=== PATIENT | male | born 1980 | race Caucasian/White ===

== ENCOUNTER 2018-06-17 20:00 | Emergency (ER) | payer SELFPAY ==
[~2018-06-17] VITALS: Ht 182.9 cm; Wt 81.8 kg
[~2018-06-17 20:00] MED LIST: NOCURR
[2018-06-17] MEDS ORDERED: SODIUM CHLORIDE 0.9% 1,000 ML IV ONE (21:00)
[2018-06-17] MEDS ORDERED: KETOROLAC TROMETHAMINE 30 MG/ML VIAL IVP ONE (21:00)
[2018-06-17] MEDS ORDERED: CeFAZolin 1 GM/DEXTROSE 50 ML IV ONE (21:00)
[2018-06-17] MEDS ORDERED: ACETAMINOPHEN 325 MG TABLET PO ONE (21:00)
[2018-06-17 21:01] LABS: BASOPHILS % (AUTO) 0.5 % (0.0-2.0); EOSINOPHILS % (AUTO) 0.3 % (1.0-6.0); HEMATOCRIT 41.4 % (41-53); HEMOGLOBIN 13.9 g/dL (13.5-17.5); LYMPHOCYTES # (AUTO) 1.4 K/uL (1.0-4.8); LYMPHOCYTES % (AUTO) 12.1 % (22.0-44.0); MEAN CORPUSCULAR HGB CONC 33.6 G/dL (31.0-37.0); MEAN CORPUSCULAR VOLUME 89 fL (80-100); MONOCYTES # (AUTO) 1.1 K/uL (0.1-1.0); MONOCYTES % (AUTO) 9.7 % (2.0-9.0); NEUTROPHILS # (AUTO) 9.1 K/uL (1.8-7.7); NEUTROPHILS % (AUTO) 77.4 % (40.0-70.0); PLATELET COUNT (AUTO) 172 K/uL (150-450); RED BLOOD CELL COUNT(AUTO) 4.64 MIL/uL (4.50-5.90); RED CELL DISTRIBUTION WIDTH 13.9 % (11.5-14.5)
[2018-06-17 21:10] LABS: ANION GAP 7 mmol/L (8-16); CALCIUM, TOTAL 8.9 mg/dL (8.8-10.5); CARBON DIOXIDE 29 mmol/L (22-29); CHLORIDE 100 mmol/L (98-107); CREATININE 1.11 mg/dL (0.60-1.30); GLOMERULAR FILTR. RATE CALC > 60 mL/min (>60); GLUCOSE,RANDOM 100 mg/dL (70-110); POTASSIUM 3.9 mmol/L (3.5-5.1); SODIUM SERUM 136 mmol/L (136-145); UREA NITROGEN, BLOOD 18 mg/dL (7-18)
[2018-06-17 21:16] LABS: ALANINE AMINOTRANSFERASE 26 U/L (12-78); ALBUMIN 3.7 g/dL (3.4-5.0); ALKALINE PHOSPHATASE 122 U/L (46-116); ASPARTATE AMINOTRANSFERASE 16 U/L (15-37); BILIRUBIN,TOTAL 0.5 mg/dL (0.1-1.0); TOTAL PROTEIN, SERUM 8.9 g/dL (6.4-8.2)
[2018-06-17 22:13] VITALS: BP 127/84
== END 2018-06-17 22:15 | disposition home or self-care (01) ==
LOC: EMS 20:00
DX: L03.116 Cellulitis of left lower limb (principal)
CPT/HCPCS: 36415; 80053; 85025; 96365; 96375; 99283; J0690; J1885; J7030

== ENCOUNTER 2018-06-22 17:57 | Emergency (ER) | payer SELFPAY ==
[~2018-06-22] VITALS: Ht 182.9 cm; Wt 84.1 kg
[2018-06-22] MEDS ORDERED: septra PO (18:15)
[2018-06-22] MEDS ORDERED: CEPH500 PO (18:15)
[2018-06-22 20:14] VITALS: BP 115/75
[2018-06-22] MEDS ORDERED: HYDROCODONE/ACETAMINOPHEN 5-325 MG TABLET PO ONE (21:45)
== END 2018-06-22 21:52 | disposition home or self-care (01) ==
LOC: EMS 17:58
DX: L03.116 Cellulitis of left lower limb (principal); B35.3 Tinea pedis; L02.612 Cutaneous abscess of left foot; Z90.49 Acquired absence of other specified parts of digestive tract; Z79.899 Other long term (current) drug therapy
CPT/HCPCS: 10060; 87070; 87205

== ENCOUNTER 2021-07-16 17:42 | Emergency (ER) | payer MEDICAID ==
[~2021-07-16] VITALS: Ht 172.7 cm; Wt 75.0 kg
[~2021-07-16 17:42] MED LIST changes: +CEPH500C3 PO; -NOCURR; +septra PO
[2021-07-16 17:55] VITALS: BP 121/71
[2021-07-16 21:12] LABS: COVID AG,FIA SOURCE NASAL SWAB
== END 2021-07-16 22:23 | disposition home or self-care (01) ==
LOC: EDUNIT# 17:42 → EMS 17:44
DX: U07.1 COVID-19 (principal); Z79.899 Other long term (current) drug therapy
CPT/HCPCS: 87426; 99283; U0003